=== PATIENT | female | born 1985 | race Two or more races ===

== ENCOUNTER 2020-06-22 17:30 | Emergency (ER) | payer SELFPAY ==
[~2020-06-22] VITALS: Ht 160 cm; Wt 68.0 kg
[2020-06-22 17:32] VITALS: BP 128/85
== END 2020-06-22 17:54 | disposition left against medical advice (07) ==
LOC: ER 17:30
DX: O26.891 Other specified pregnancy related conditions, first trimester (principal); Z3A.01 Less than 8 weeks gestation of pregnancy; Z53.21 Procedure and treatment not carried out due to patient leaving prior to being seen by health care provider